=== PATIENT | female | born 1955 | race Caucasian/White ===

== ENCOUNTER 2021-01-27 09:05 | Day surgery (SDC) | payer OTHER ==
[~2021-01-27] VITALS: Ht 149.9 cm; Wt 65.2 kg
[2021-01-27] VITALS (8 sets, daily range): BP systolic 103–130; BP diastolic 44–73
[2021-01-27] MEDS ORDERED: LIDOcaine 1% (10mg/ml) 2ml vial ONE (09:27)
[2021-01-27] MEDS ORDERED: LORazepam 0.5 MG tablet PO ONE (09:40)
[2021-01-27] MEDS ORDERED: cefazolin/dext.iso 2gm/100ml 100 ML IV ONE (09:40)
[2021-01-27] MEDS ORDERED: ROSU5TAB PO (09:54)
[2021-01-27] MEDS ORDERED: ALB0.5UD IH (09:54)
[2021-01-27] MEDS ORDERED: TIOT4MIS3 INH (09:54)
[2021-01-27] MEDS ORDERED: ALBU8HFA PO (09:54)
[2021-01-27] MEDS ORDERED: TRAZ-251 PO (09:54)
[2021-01-27] MEDS ORDERED: MAGN200T5 PO (09:54)
[2021-01-27] MEDS ORDERED: DULO-31 PO (09:54)
[2021-01-27] MEDS ORDERED: METH-797 PO (09:54)
[2021-01-27 10:45] LABS: BASOPHILS % (AUTO) 0.5 % (0-1); EOSINOPHILS # (AUTO) 0.1 X10'3 (0-0.9); EOSINOPHILS % (AUTO) 2.2 % (0-6); HEMATOCRIT 43.9 % (35.0-45.0); HEMOGLOBIN 14.9 g/dl (12.0-16.0); LYMPHOCYTES % (AUTO) 16.7 % (21-51); MEAN CORPUSCULAR HEMOGLOBIN 32.9 PG (27.0-31.0); MEAN CORPUSCULAR HGB CONC 33.9 g/dL (33.0-36.5); MEAN PLATELET VOLUME 7.2 FL (7.4-10.4); MONOCYTES # (AUTO) 0.2 X10'3 (0-0.9); MONOCYTES % (AUTO) 3.6 % (2-12); NEUTROPHILS # (AUTO) 4.8 X10'3 (1.8-7.7); PLATELET COUNT 260 X10'3 (140-440); RED BLOOD COUNT 4.53 X10'6 (4.20-5.60); RED CELL DISTRIBUTION WIDTH 13.6 % (11.5-14.5); WHITE BLOOD COUNT 6.2 X10'3 (4.5-11.0)
[2021-01-27] MEDS ORDERED: midazolam 1 mg/ML 2ml injection ONE ×2 (10:58→11:46)
[2021-01-27] MEDS ORDERED: LIDOcaine 1%/PF 5ML 10 MG/ML VIAL ONE ×2 (10:58→11:43)
[2021-01-27] MEDS ORDERED: iohexol 300 MG/1 ML 50ml polymer ONE (10:58)
[2021-01-27] MEDS ORDERED: fentaNYL/PF 50MCG/1 ML 2ML syringe ONE (10:58)
[2021-01-27] MEDS ORDERED: diphenhydrAMINE 50 mg/ml inj ONE (10:58)
[2021-01-27] MEDS ORDERED: HYDROcodone/acetaminophen 5mg/325mg tablet PO PRN (12:40)
[2021-01-27] MEDS ORDERED: normal saline 1000ml 1,000 ML IV SCH (12:40)
== END 2021-01-27 16:00 | disposition home or self-care (01) ==
LOC: SSTAY O 09:05
PROVIDERS: ATTEND Radiology Vascular & Interventional Radiology
DX: S22.080A Wedge compression fracture of T11-T12 vertebra, initial encounter for closed fracture (principal); M54.6 Pain in thoracic spine; X58.XXXA Exposure to other specified factors, initial encounter; Y93.89 Activity, other specified; Y92.89 Other specified places as the place of occurrence of the external cause; Y99.8 Other external cause status
CPT/HCPCS: 22513; 36415; 85025; 85610; 99152; 99153; C1713; J1200; J2001; J2250; J3010; Q9967